=== PATIENT | male | born 1960 | race Caucasian/White ===

== ENCOUNTER 2025-05-29 11:04 | Inpatient (IN) ==
--- NOTE | 2025-05-02 09:32 | PAT Medication Instructions ---
Medication Instructions Date of Service May 02, 2025 Home Medications allopurinol 300 mg tablet 300 mg PO HS amlodipine 10 mg tablet 10 mg PO HS sertraline 50 mg tablet 50 mg PO QAM Take morning of surgery With a small sip of water, OTHERWISE NOTHING TO EAT OR DRINK AFTER MIDNIGHT: sertraline 50 mg tablet 50 mg PO QAM Take evening before surgery allopurinol 300 mg tablet 300 mg PO HS amlodipine 10 mg tablet 10 mg PO HS Other Notes If you have any questions please call us at [phone] or [phone] or [phone] or [phone]
--- NOTE | 2025-05-07 13:25 | Anesthesiology Consultation ---
Date of Service May 07, 2025 Assessment & Plan (1) Encounter for pre-operative examination: - Infectious disease screening: Per assessment on 05/02/25- No known recent infectious disease contacts or current infectious disease symptoms. - PCP visit 05/07/25: "Detsky's modified cardiac risk index puts him at a low risk cardiovascular events.. at this time we will clear patient for surgery as a low risk.." Chart Review Chart Review: Acceptable Risk for Surgery and Patient seen in Pre Admission Testing Teaching & Discussion Pre-Anesthesia Teaching/Discussion Notes: Instructed NPO after midnight before surgery,except medications with 15 cc of water. Medication instructions provided according to the PAT guidelines. History Surgery Operation Date: 05/29/25 10:25 Proposed Procedures p L2-L5 Decompression and Fusion - Rogelio Emanuel DO Height/Weight Height: 5 ft 9.5 in Weight: 82.2 kg Allergies Allergy/AdvReac Type Severity Reaction Status Date / Time No Known Allergies Allergy Verified 05/02/25 07:37 Medications Home Medications Medication Instructions Recorded Confirmed Last Taken allopurinol 300 mg tablet 300 mg PO HS 05/02/25 05/02/25 Unknown amlodipine 10 mg tablet 10 mg PO HS 05/02/25 05/02/25 Unknown sertraline 50 mg tablet 50 mg PO QAM 05/02/25 05/02/25 Unknown Past Medical History Medical History (Updated 05/08/25 @ 10:40 by Savanah Jose) Anxiety Aortic root dilation Stable x 20 years per patient, monitored by PCP Stable 4.3 cm ascending aorta per 05/2024 CT Thorax HTN (hypertension) Hx of gout Exercise / Class Metabolic Activity II 4-5 Yardwork/Stairs/Walk up hill (one FS: No CP, no SOB) Past Family History Family History Other No family history of adverse response to anesthesia Past Surgical History Surgical History Hx of colonoscopy Hx of inguinal hernia repair Hx of melanoma excision removed from face Past Anesthesia History No Hx of Anesthesia Complications and No Family Hx of Anesthesia Complications History of PONV No Hx of PONV and No Hx of Motion Sickness Social History Smoking Status: Never smoker Do You Dip or Chew Tobacco: No Hx Alcohol Use: Yes alcohol intake frequency: holidays/special occasions only Hx Substance Use: No substance use type: does not use Review of Systems Patient denies chest pain, shortness of breath, dyspnea on exertion, fever, chills, cough, wheezing, palpitations. Physical Exam Vital Signs BP 151/84 P 75 TEMP 98.4 SP02 95%RA RESP 16 Physical Full cervical extension range of motion. Full TMJ range of motion. TMD 3 finger breaths Mallampati Score II Dentition: intact, upper left front chipped Lungs: clear throughout to auscultation Cardiac: regular rate and rhythm, no murmurs noted Spine: normal Carotid arteries: negative bruit Extremities: no LE edema Lab Results Anesthesia Preop Results Results Anesthesia Widget: WBC 6.27 K/ul (4.8-10.8) 05/07/25 Hgb 13.8 g/dl (14.0-18.0) L 05/07/25 Hct 38.6 % (42.0-52.0) L 05/07/25 Plt 194 K/uL (130-400) 05/07/25 Na 135 mmol/L (136-145) L 05/07/25 K 3.6 mmol/L (3.5-5.1) 05/07/25 Cl 103 mmol/L (98-107) 05/07/25 CO2 25 mmol/L (21-32) 05/07/25 BUN 17 mg/dl (6-23) 05/07/25 Creat 1.46 mg/dl (0.6-1.4) H 05/07/25 Glucose Level 101 mg/dl (70-99(Fasting)) H 05/07/25 PT 10.9 Seconds (9.0-12.0) 05/07/25 PTT 27 Seconds (21-31) 05/07/25 INR 1.0 (0.9-1.1) 05/07/25 Urine Color Yellow 05/07/25 Urine Appearance Clear (Clear) 05/07/25 Urine pH 6.0 (4.5-7.5) 05/07/25 Urine Specific Ephraim 1.009 (1.000-1.030) 05/07/25 Urine Protein Negative (Negative) 05/07/25 Urine Glucose (UA) Negative (Negative) 05/07/25 Urine Ketones Negative (Negative) 05/07/25 Urine Blood Negative (Negative) 05/07/25 Urine Nitrite Negative (Negative) 05/07/25 Urine Bilirubin Negative (Negative) 05/07/25 Urine Urobilinogen Negative (Negative) 05/07/25 Urine Leukocyte Esterase Negative (Negative) 05/07/25 Blood Type A Positive 05/07/25 Antibody Screen NEGATIVE 05/07/25 Testing Electrocardiogram Date: 05/07/25 NSR at 68bpm. LAFB. Chest X-Ray Date: 05/07/25 FINDINGS: Heart size and pulmonary vasculature are normal. No consolidation or pleural effusion. There is mild scoliosis. IMPRESSION: No acute findings. Other Testing CT Thorax Date: 05/11/24 Stable 4.3 cm ascending aorta.
[~2025-05-29 11:04] MED LIST: DEXAMETHASONE SOD INJ 4 MG/ML VIAL ONE; HYDROmorphone INJ 2 MG/ML SYR/VIAL ONE; LIDOCAINE 2% 2 ML VIAL/AMP(20MG/ML) INFIL ONE; MIDAZOLAM HCL 1 MG/ML 2ML VIAL ONE; ONDANSETRON INJ 2 MG/ML 2 ML VIAL ONE; PROPOFOL IV EMULSION 10 MG/ML 20 ML VIAL IV ONE; ROCURONIUM BROMIDE 10 MG/ML 5 ML VIAL IV ONE
[2025-05-29] MEDS ORDERED: ONDANSETRON INJ 2 MG/ML 2 ML VIAL IV PRN (11:12)
[2025-05-29] MEDS ORDERED: ATROPINE SULFATE 0.1 MG/ML 10ML SYR IV PRN (11:12)
[2025-05-29] MEDS ORDERED: HYDROmorphone INJ 1 MG/ML SYRINGE IV PRN (11:12)
[2025-05-29] MEDS: CeleBREX 200 MG CAP PO SCH (11:24)
[2025-05-29] MEDS: LR 60ML/HR IV SCH (11:24)
[2025-05-29] MEDS: ACETAMINOPHEN 500 MG TAB PO SCH (11:24)
[2025-05-29] MEDS: GABAPENTIN 300 MG CAP PO SCH (11:24)
[2025-05-29] MEDS: LR 15ML/HR IV SCH (11:28)
--- NOTE | 2025-05-29 11:50 | History & Physical Report ---
Date of Service May 29, 2025 Assessment & Plan (1) Multilevel lumbosacral spondylosis with radiculopathy: Plan: L2-L5 decompression and fusion History of Present Illness Chief Complaint: Back and leg pain Primary Care Provider: NO PCP This is a 65-year-old male presents with chronic persistent back and leg pain after failing course of nonoperative care is here for surgical invention. Allergies Allergy/AdvReac Type Severity Reaction Status Date / Time No Known Allergies Allergy Verified 05/29/25 10:51 Home Medications Medication Instructions Recorded Confirmed Type allopurinol 300 mg tablet 300 mg PO HS 05/02/25 05/29/25 History amlodipine 10 mg tablet 10 mg PO HS 05/02/25 05/29/25 History sertraline 50 mg tablet 50 mg PO QAM 05/02/25 05/29/25 History acetaminophen 650 mg 1,300 mg PO Q12H PRN Pain 05/29/25 05/29/25 History tablet,extended release (Tylenol 8 Hour) Past Med/Surg History Problem List (Updated 05/29/25 @ 11:50 by Rogelio Emanuel DO) Multilevel lumbosacral spondylosis with radiculopathy Encounter for pre-operative examination Medical History (Updated 05/29/25 @ 11:50 by Rogelio Emanuel DO) Aortic root dilation Stable x 20 years per patient, monitored by PCP Stable 4.3 cm ascending aorta per 05/2024 CT Thorax Anxiety HTN (hypertension) Hx of gout Surgical History Hx of colonoscopy Hx of melanoma excision removed from face Hx of inguinal hernia repair Family History Other No family history of adverse response to anesthesia Social History Smoking Status: Never smoker Second Hand Exposure: No; Do You Dip or Chew Tobacco: No; Tobacco Cessation Education Requested by Patient: No Hx Alcohol Use: Yes Hx Substance Use: No Preferred Language: Estonian Communication Ability: Effective Cork Cutter Required: No Beliefs That Will Affect Care: None Current Living Situation: Spouse Other Information That Helps Us Care for You: No Feels Safe at Home: Yes Safety Concerns: Feels Safe At This Time Assistive Devices: None Physical Exam Physical Exam: Patient is alert and oriented heart regular rhythm Lungs clear Results & Data Results & Data Vital Signs (Past 12 Hours) Vital Signs Temp Pulse Resp BP Pulse Ox O2 Del Method 05/29/25 11:09 Room Air 05/29/25 11:08 36.7 C 67 18 177/97 H 100 Room Air
--- NOTE | 2025-05-29 11:50 | History & Physical Bridge Note ---
Date of Service May 29, 2025 History & Physical Bridge Note I have examined the patient, reviewed the History & Physical and in the interval since the performance of the History & Physical I have noted the following changes of clinical significance: no changes noted
[2025-05-29] MEDS ORDERED: ALBUMIN HUMAN 5% 12.5 GM/250 ML VIAL IV ONE (12:11)
[2025-05-29] MEDS ORDERED: KETAMINE HCL 10MG/ML SYR ONE (12:11)
[2025-05-29] MEDS ORDERED: ePHEDrine sulfate 50 MG/5 ML SYR ONE (12:55)
[2025-05-29] MEDS: ceFAZolin 330 MG/ML 1 GM VIAL ONE (12:59)
[2025-05-29] MEDS: BUPIVACAINE/EPINEPHRINE 0.25% 1:200,000 30 ML VIAL ONE (12:59)
[2025-05-29] MEDS: SURGICEL ABSORB HEMOSTAT 2IN X 14IN TOP ONE (13:13)
[2025-05-29] MEDS ORDERED: SUGAMMADEX SODIUM 200 MG/2 ML VIAL IV ONE (13:48)
[2025-05-29] MEDS: FLOSEAL HEMOSTATIC MATRIX 10ML TOP ONE (14:29)
--- NOTE | 2025-05-29 14:46 | Operative Report ---
Post Operative Report Pre & Post Diagnosis Operation Date: 05/29/25 12:15 Pre-Op Diagnosis: #1 lumbar spondylosis with radiculopathy #2 lumbar spondylolisthesis with radiculopathy #3 lumbar spinal stenosis Post-Op Diagnosis: Same I identified the patient and participated in the time-out.: Yes Procedure Operation Date: 05/29/25 12:15 Actual Procedures #1 lumbar decompression with bilateral medial facetectomies and foraminotomies L2-L3, L3-L4 and L4-5. #2 posterior spinal fusion L2-L5. #3 placed posterior segmental instrumentation L2-L5 using camber. #4 interbody fusion L3-L4 L4-5 and #5 placement of Spira 13 x 26 mm x 2 at L3-L4 and 12 x 26 mm x 2 at L4-L5. #6 placement locally harvested morselized autograft in the posterior gutters. #7 placement of Proteus bone graft combined with Koros in the posterior lateral gutters and os design in the interbody space. #8 application of versa wrap of the exposed dura. Surgeon Rogelio Emanuel, DO Hand Candy Dipper Aggie Celis Estimated Blood Loss 400 Findings Consistent with Post-Op Diagnosis Specimens None Indications This is a 65-year-old male who presents by much diagnosis and failing course of nonoperative care is here for surgical invention. Description of Procedure Patient is met with identified informed consent obtained. Patient was then taken to the operative suite underwent and patient placed in a prone position on the Michael table atop the Juwan frame. All bony promises well-padded eyes inspected to ensure no external pressure placed upon them. This point the lumbar spine was prepped and draped in normal sterile fashion. Sharp dissection with the assistance of Bovie cautery from down to and exposing the lamina and transverse processes of L2 L3-L4-L5 bilaterally. Benitez cephalad fashion complete laminectomy of L4 L3 and L2 was performed including bilateral medial facetectomies and foraminotomies addressing severe neural compression. Pedicle screws in place in L2 L3-L4-L5 bilaterally with assistance of fluoroscopy and appropriately sized zaina placed. By way of transfer and approach and a right a discectomy of L4-L5 was performed endplates corrected to subcortical bleeding bone and a 12 x 26 mm Spira cage tapped into position. I then proceeded to the left transforaminal region at L4-5. Again discectomy performed. Endplates guided to subcortical bleeding bone. A second 12 x 26 mm Spira cage tapped into position. Then proceeded to L3-L4 and by way of transforaminal approach on the left a discectomy was performed. Endplates curetted to subcortical bleeding bone. A 13 x 26 mm Spira cage was then tapped into position. Then proceeded to the right transforaminal region at L3-L4. Again discectomy performed. Endplates coated to subcortical bleeding bone and a second 13 x 26 mm Spira cage tapped into position. Please note all cages were packed with os design bone graft. Rods were then locked into final position bilaterally. The transverse processes of L2-L3 L4-5 burred to subcortical bleeding bone. Koros combined with Proteus and local autograft placed in the posterolateral gutters. Versa wrap placed over the exposed dura. 15 round RAHEEM drain inserted. The incision was then closed with 1 Vicryl the fascia 2-0 Vicryl subcutaneously and 4 oh for final skin closure. Steri-Strips sterile dressing placed. Patient waken taken to PACU stable condition. Please note Aggie Celis was present out the entire procedure and on the patient positioning complex portion of the surgery and final skin closure. I attest to the content of the Intraoperative Record and any orders documented therein. Any exceptions are noted below.
--- NOTE | 2025-05-29 15:23 | Fluoroscopy Report ---
FL lumbar spine 2-3V CLINICAL HISTORY: L2-L5 DECOMPRESSION AND FUSION COMPARISON STUDY: No previous studies for comparison. FINDINGS: 14 seconds of fluoroscopic time was utilized. 2 intraoperative fluoroscopic spot images are provided for interpretation. There are postsurgical changes of an L2-L5 spinal decompression and fusion. Interbody fusion implants are visualized at the L3-4 and L4-5 levels. There are pedicle screws and adjoining spinal rods exten ding from the L2 to the L5 level. IMPRESSION: Fluoroscopic spot images demonstrating an L2-L5 spinal decompression and fusion. ACT 112: Negative or not required by law. Electronically signed by: Eber Diaz M.D. 05/29/2025 3:22 PM
--- NOTE | 2025-05-29 15:39 | Anesthesiology Progress Note ---
Date of Service May 29, 2025 Anesthesia Post Procedure Vital Signs Vital Signs: Temp Pulse Pulse Resp BP Pulse Ox O2 Del Method 05/29/25 15:35 36.5 C 68 15 117/74 100 Nasal Cannula 05/29/25 15:25 67 14 95/64 L 88 L Room Air 05/29/25 15:15 77 13 121/76 97 Room Air 05/29/25 15:05 71 10 L 122/70 99 Oxymask 05/29/25 14:59 36.5 C 82 11 L 126/80 97 Oxymask 05/29/25 11:09 Room Air 05/29/25 11:08 36.7 C 67 18 177/97 H 100 Room Air O2 Flow Rate 05/29/25 15:35 2 05/29/25 15:25 05/29/25 15:15 05/29/25 15:05 4 05/29/25 14:59 6 05/29/25 11:09 05/29/25 11:08 Pain Intensity Back: Pain Intensity: 5 Transfer of Care Handoff Completed per policy Notes Mental Status: alert / awake / arousable Patient Amnestic to Procedure: Yes Nausea / Vomiting: adequately controlled Pain: adequately controlled Airway Patency, RR, SpO2: stable & adequate BP & HR: stable & adequate Hydration State: stable & adequate Anesthetic Complications: no major complications apparent and Pt Satisfied with anesthetic care
[2025-05-29] MEDS ORDERED: PROMETHAZINE 12.5 MG/50.5 ML BAG IV PRN (16:02)
[2025-05-29] MEDS ORDERED: HYDROmorphone INJ 0.5 MG/0.5 ML SYR IV PRN (16:02)
[2025-05-29] MEDS ORDERED: FAMOTIDINE 20 MG TAB PO PRN (16:02)
[2025-05-29] MEDS ORDERED: LORazepam Inj 0.5 MG in SYRINGE 0.25 ML IV PRN (16:02)
[2025-05-29] MEDS ORDERED: METOCLOPRAMIDE HCL INJ 5 MG/ML 2 ML VIAL IV PRN (16:02)
[2025-05-29] MEDS ORDERED: MAGNESIUM HYDROXIDE SUSP 30 ML UDC PO PRN (16:02)
[2025-05-29] MEDS ORDERED: DO NOT ADMINISTER FLU VACCINE PRN (16:02)
[2025-05-29] MEDS ORDERED: ONDANSETRON 4 MG OD TAB PO PRN (16:02)
[2025-05-29] MEDS ORDERED: NALOXONE HCL 0.4 MG/1 ML VIAL/CARP IV PRN (16:02)
[2025-05-29] MEDS ORDERED: ALUMINUM/MAGNESIUM SUSP 30 ML UDC PO PRN (16:02)
[2025-05-29] MEDS ORDERED: SOD PHOSPHATE/SOD BIPHOSPHATE ENEMA 132 ML BTL PR PRN (16:02)
[2025-05-29] MEDS ORDERED: DO NOT ADMINISTER PNEUMOCOCCAL VACCINE PRN (16:02)
[2025-05-29] MEDS: HYDROmorphone INJ 1 MG/ML SYRINGE IV PRN (16:17)
[2025-05-29] MEDS: SODIUM CHLORIDE 0.9% 1,000 ML IV SCH (16:17)
--- NOTE | 2025-05-29 19:58 | Hospitalist Consultation ---
Date of Consultation May 29, 2025 Assessment & Plan (1) Multilevel lumbosacral spondylosis with radiculopathy: S/p lumbar surgery by Dr. Emanuel DVT ppx, pain management, PT/OT per orthopedics Monitor H&H for acute blood loss anemia, pre-op Hgb 13.8 Currently pt is doing well. Denies any significant pain. Moving extremities. Hx of HTN - on amlodipine 10 mg daily - current BP 118/75, will hold amlodipine for tonight, re-assess tmrw and possibly resume then Hx of gout - on allopurinol, cont. Hx of depression - on sertraline 75 mf daily, cont. History of Present Illness Reason for Consultation: post op med consult Requesting Physician: Dr. Emanuel Attending Physician: Rogelio Emanuel, History of Present Illness 65 yo M w/ hx of back pain due to lumbar spondylosis, HTN, gout, depression, now s/p lumbar surgery w/ Dr. Emanuel. Currently lying in bed in [facility]. He is awake, resting, alert, oriented, answers simple questions appropriately. Denies any chest pain and denies any hx of heart disease. Nonsmoker. Denies any shortness of breath, or abd. pain, or n/v. no fevers, chills. Confirms taking sertraline 75 mg - dose changed in EMR. Allergies Allergy/AdvReac Type Severity Reaction Status Date / Time No Known Allergies Allergy Verified 05/29/25 10:51 Home Medications Medication Instructions Recorded Confirmed Type allopurinol 300 mg tablet 300 mg PO HS 05/02/25 05/29/25 History amlodipine 10 mg tablet 10 mg PO HS 05/02/25 05/29/25 History sertraline 50 mg tablet 50 mg PO QAM 05/02/25 05/29/25 History acetaminophen 650 mg 1,300 mg PO Q12H PRN Pain 05/29/25 05/29/25 History tablet,extended release (Tylenol 8 Hour) Patient History Medical History Aortic root dilation Stable x 20 years per patient, monitored by PCP Stable 4.3 cm ascending aorta per 05/2024 CT Thorax Anxiety HTN (hypertension) Hx of gout Surgical History Hx of colonoscopy Hx of melanoma excision removed from face Hx of inguinal hernia repair Family History Other No family history of adverse response to anesthesia Social History Smoking Status: Never smoker Second Hand Exposure: No; Do You Dip or Chew Tobacco: No; Tobacco Cessation Education Requested by Patient: No Hx Alcohol Use: Yes Hx Substance Use: No Preferred Language: Emirati Communication Ability: Effective Supervisor Hand Silvering Required: No Beliefs That Will Affect Care: None Current Living Situation: Spouse Other Information That Helps Us Care for You: No Feels Safe at Home: Yes Safety Concerns: Feels Safe At This Time Assistive Devices: None Review of Systems Review of Systems: All systems reviewed & are unremarkable except as noted in HPI & below Physical Exam Constitutional: WD/WN, vitals as above Eyes: PERRL, conjunctivae normal, anicteric sclerae ENMT: external ear and nose normal, oropharynx normal Neck: trachea midline, no thyromegaly Respiratory: normal respiratory effort, lungs clear to auscultation Cardiovascular: RRR, no murmur, no edema Chest (Breasts): Chest: normal inspection of chest Gastrointestinal (Abdomen): normal bowel sounds, soft, nontender Musculoskeletal: moves extremities Skin: no rashes, warm and dry Neurologic: awake, alert, answers appropriately, moves extremities Genitourinary: Kumar cath placed, draining yellow clear urine Results & Data Results & Data Vital Signs (Past 12 Hours) Vital Signs Temp Pulse Pulse Resp BP Pulse Ox O2 Del Method 05/29/25 19:22 36.3 C L 90 16 118/75 92 Room Air 05/29/25 18:00 36.3 C L 98 H 18 133/84 99 Nasal Cannula 05/29/25 17:11 36.2 C L 89 17 130/89 100 Nasal Cannula 05/29/25 16:35 36.4 C L 74 18 146/91 H 98 Nasal Cannula 05/29/25 16:00 Nasal Cannula 05/29/25 15:50 76 17 115/75 100 Nasal Cannula 05/29/25 15:35 36.5 C 68 15 117/74 100 Nasal Cannula 05/29/25 15:25 67 14 95/64 L 88 L Room Air 05/29/25 15:15 77 13 121/76 97 Room Air 05/29/25 15:05 71 10 L 122/70 99 Oxymask 05/29/25 14:59 36.5 C 82 11 L 126/80 97 Oxymask 05/29/25 11:09 Room Air 05/29/25 11:08 36.7 C 67 18 177/97 H 100 Room Air O2 Flow Rate 05/29/25 19:22 05/29/25 18:00 1 05/29/25 17:11 05/29/25 16:35 2 05/29/25 16:00 2 05/29/25 15:50 2 05/29/25 15:35 2 05/29/25 15:25 05/29/25 15:15 05/29/25 15:05 4 05/29/25 14:59 6 05/29/25 11:09 05/29/25 11:08 Laboratory Results 05/29/25 Range/Units 10:50 Blood Type A Positive Antibody Screen NEGATIVE Crossmatch See Detail Medications Administered Current Inpatient Medications Acetaminophen (Acetaminophen 500 Mg Tab) 1,000 mg PO Q8H PRN PRN Reason: MILD Pain (1,2,3) & Pre PT Stop: 06/28/25 16:01 Al Hydrox/Mg Hydrox/Simethicone (Aluminum/Magnesium Susp 30 Ml Udc) 30 ml PO Q6H PRN PRN Reason: Dyspepsia Stop: 06/28/25 16:01 Allopurinol (Allopurinol 300 Mg Tab) 300 mg PO HS ASA Stop: 06/28/25 20:59 Amlodipine Besylate (Amlodipine Besylate 5 Mg Tab) 10 mg PO HS ASA Stop: 06/28/25 20:59 Bisacodyl (Bisacodyl 10 Mg Supp) [address] DAILY PRN PRN Reason: Constipation Stop: 06/28/25 16:01 Diphenhydramine HCl (Diphenhydramine Capsule 25 Mg Cap) 25 mg PO Q6H PRN PRN Reason: Allergic Rhinitis/Insomnia Stop: 06/28/25 16:01 Famotidine (Famotidine 20 Mg Tab) 20 mg PO Q12H PRN PRN Reason: Dyspepsia Stop: 06/28/25 16:01 Hydromorphone HCl (Hydromorphone Inj 0.5 Mg/0.5 Ml Syr) 0.5 mg IV Q3H PRN PRN Reason: MODERATE Pain(4,5,6)/Pre PT Stop: 06/12/25 16:01 Hydromorphone HCl (Hydromorphone Inj 1 Mg/Ml Syringe) 1 mg IV Q3H PRN PRN Reason: SEVERE Pain (7,8,9,10) Stop: 06/12/25 16:01 Last Admin: 05/29/25 16:17 Dose: 1 mg Hydroxyzine HCl (Hydroxyzine Hcl 25 Mg Tab) 25 mg PO Q8H PRN PRN Reason: Anxiety Stop: 06/28/25 16:01 Lactated Ringer's (Lr) 1,000 mls @ 60 mls/hr IV .[id number] ASA Stop: 05/29/25 22:39 Last Admin: 05/29/25 11:24 Dose: Not Given Lactated Ringer's (Lr) 1,000 mls @ 15 mls/hr IV .Q24H ASA Stop: 05/30/25 05:59 Last Infusion: 05/29/25 12:21 Dose: Infused Sodium Chloride (Nss) 1,000 mls @ 100 mls/hr IV .Q10H ASA Stop: 06/01/25 16:01 Last Admin: 05/29/25 16:17 Dose: 100 mls/hr Acetaminophen (Ofirmev) 1,000 mg in 100 mls @ 400 mls/hr IV Q8H PRN PRN Reason: MILD Pain (1,2,3) & Pre PT Stop: 05/30/25 16:02 Cefazolin Sodium (Ancef 2000mg) 2,000 mg in 15 mls @ 3.75 mls/min IV Q8H ASA Stop: 06/01/25 13:03 Promethazine HCl (Phenergan) 12.5 mg in 50.5 mls @ 202 mls/hr IV Q6H PRN PRN Reason: Nausea And Vomiting Stop: 06/28/25 16:01 Lorazepam 0.5 mg/ Syringe 0.5 mls @ 2 mls/min IV Q8H PRN PRN Reason: Sedation/Anxiety Stop: 06/28/25 16:01 Dexamethasone 6 mg/ Syringe 1.5 mls @ 1 mls/min IV DAILY ASA Stop: 06/01/25 09:02 Influenza Virus Vaccine Quadrival (Do Not Administer Flu Vaccine) 1 each N/A PRN PRN PRN Reason: Notification Stop: 06/28/25 16:01 Lorazepam (Lorazepam 0.5 Mg Tab) 0.5 mg PO Q8H PRN PRN Reason: Sedation/Anxiety Stop: 06/28/25 16:01 Magnesium Hydroxide (Magnesium Hydroxide Susp 30 Ml Udc) 30 ml PO Q24H PRN PRN Reason: Constipation Stop: 06/28/25 16:01 Metoclopramide HCl (Metoclopramide Hcl Inj 5 Mg/Ml 2 Ml Vial) 10 mg IV Q6H PRN PRN Reason: Nausea &/or Vomiting Stop: 06/28/25 16:01 Naloxone HCl (Naloxone Hcl 0.4 Mg/1 Ml Vial/Carp) 0.1 mg IV Q5M PRN PRN Reason: Oversedation/Resp depression Stop: 06/28/25 16:01 Ondansetron HCl (Ondansetron Inj 2 Mg/Ml 2 Ml Vial) 4 mg IV Q6H PRN PRN Reason: Nausea &/or Vomiting Stop: 06/28/25 16:01 Ondansetron HCl (Ondansetron 4 Mg Od Tab) 4 mg PO Q6H PRN PRN Reason: Nausea Stop: 06/28/25 16:01 Oxycodone HCl (Oxycodone Hcl Ir 5 Mg Tab (Immediate Release)) 5 - 10 mg PO Q4H PRN PRN Reason: MOD/SEV Pain & Pre PT Stop: 06/12/25 16:01 Pneumococcal Polyvalent Vaccine (Do Not Administer Pneumococcal Vaccine) 1 each N/A PRN PRN PRN Reason: Notification Stop: 06/28/25 16:01 Polyethylene Glycol (Polyethylene (Miralax) 17 Gm Pack) 17 gm PO Q6 ASA Stop: 06/29/25 05:59 Senna/Docusate Sodium (Docusate Sodium/Senna 50/8.6mg Tab) 2 tab PO HS ASA Stop: 06/28/25 20:59 Sertraline HCl (Sertraline Hcl 50 Mg Tablet) 75 mg PO QAM ASA Stop: 06/29/25 08:59 Sodium Biphosphate/Sodium Phosphate (Sod Phosphate/Sod Biphosphate Enema 132 Ml Btl) [address] ONE PRN PRN Reason: Constipation Stop: 06/28/25 16:01 Tramadol HCl (Tramadol Hcl 50 Mg Tablet) 50 - 100 mg PO Q4H PRN PRN Reason: MOD/SEV Pain & Pre PT Stop: 06/28/25 16:01 Last Admin: 05/29/25 17:59 Dose: 100 mg
[2025-05-29] MEDS: DOCUSATE SODIUM/SENNA 50/8.6MG TAB PO SCH (21:28)
[2025-05-30] MEDS: ACETAMINOPHEN 500 MG TAB PO PRN (01:43)
[2025-05-30] MEDS: POLYETHYLENE (MIRALAX) 17 GM PACK PO SCH (05:55)
[2025-05-30 06:24] LABS: Hematocrit (blood only) 29.1 % (42.0-52.0); Hemoglobin 10.5 g/dl (14.0-18.0); Immature Granulocytes # (auto) 0.04 K/uL (0.01-0.20); Immature Granulocytes % (auto) 0.3 %; Mean Corpuscular Hemoglobin 31.8 pg (25.0-34.0); Mean Corpuscular Volume 88.2 fL (80.0-100.0); Platelet Count 172 K/uL (130-400); RDW Standard Deviation 38.5 fL (36.4-46.3); Red Blood Count 3.30 M/uL (4.70-6.10); White Blood Count 12.42 K/ul (4.8-10.8)
[2025-05-30 06:43] LABS: Anion Gap 7.0 (3-11); Blood Urea Nitrogen 12.0 mg/dl (6-23); Calcium 8.1 mg/dl (8.6-10.3); Carbon Dioxide 24.0 mmol/L (21-32); Chloride 102.0 mmol/L (98-107); Creatinine Clr Calc Pharmacy 71.5 ml/min; Glucose 124.0 mg/dl (70-99(Fasting)); Potassium 3.8 mmol/L (3.5-5.1); Sodium 133.0 mmol/L (136-145)
[2025-05-30] MEDS: SERTRALINE HCL 50 MG TABLET PO SCH (08:22)
[2025-05-30] MEDS: dexAMETHasone 6 MG in SYRINGE 0 ML IV SCH (08:27)
[2025-05-30] MEDS ORDERED: SERTRALINE HCL 50 MG TABLET PO SCH (09:00)
--- NOTE | 2025-05-30 09:53 | Orthopedic Progress Note ---
Date of Service May 30, 2025 Assessment & Plan (1) Multilevel lumbosacral spondylosis with radiculopathy: Plan: Boyd is postoperative day 1 status post L2-5 decompression and fusion. He is can start physical therapy today. Continue with pain control. DVT prophylaxis is in the form teds and SCDs. Work on aggressive bowel regimen. Anticipate discharge home within the next day or 2. Admission and Anticipated Discharge Date Admission Date: May 29, 2025 Subjective Boyd is postoperative day 1 status post L2-L5 decompression and fusion. He has had an uneventful evening. Pain is greatly improved. RAHEEM drain output last shift was 120 cc. H&H this morning are 10.5 and 29.1 respectively. No other complaints. Review of Systems Review of Systems: All systems reviewed & are unremarkable except as noted in HPI & below Physical Exam Physical Exam: He is sitting in a chair alert and orient x [address] Emanuel as well Strength is intact bilateral lower extremities Drainage on bandage which they are going to reinforce RAHEEM drain is intact and functioning Results & Data Vital Signs (Past 12 Hours) Vital Signs Temp Pulse Resp BP Pulse Ox O2 Del Method 05/30/25 06:00 36.4 C L 95 H 18 131/81 95 Room Air 05/30/25 02:35 36.4 C L 77 12 129/76 94 Room Air 05/29/25 23:33 36.6 C 107 H 16 142/80 H 92 Room Air
[2025-05-30] MEDS: ONDANSETRON INJ 2 MG/ML 2 ML VIAL IV PRN (10:14)
[2025-05-30] MEDS: ACETAMINOPHEN 1,000 MG/100 ML VIAL IV PRN (10:17)
[2025-05-30] MEDS ORDERED: Nursing to Pharmacy Communication SCH (12:00)
--- NOTE | 2025-05-30 13:25 | Hospitalist Progress Note ---
Date of Service May 30, 2025 Assessment & Plan (1) Multilevel lumbosacral spondylosis with radiculopathy: (2) HTN (hypertension): (3) Anxiety: (4) Acute postoperative anemia due to expected blood loss: Plan Patient 65-year-old gentleman status post orthopedic spine surgery. Continue outpatient medications Continue pain control per attending Patient did have some expected blood loss, anticipate patient will continue to improve as he gets further away from his surgical intervention Leukocytosis due to steroids Encourage slow but steady increase in his activity. Admission and Anticipated Discharge Date Admission Date: May 29, 2025 Subjective Patient seen shortly after physical therapy. This was the first time he was up. A bit fatigued and a little bit nauseated and some flare of his pain. Getting some antiemetics and pain medications while I was in evaluating him. Physical Exam Physical Exam: Constitutional: Alert, mild distress due to pain HEENT: Mucous membranes moist. Lungs: Clear to auscultation, decreased, no wheezes rales or rhonchi CV: S1-S2, regular Abdomen: Soft, nontender, nondistended Extremities: No significant edema Neuro: No focal deficits Psych: Cooperative, normal mood Results & Data Results & Data Vital Signs (Past 12 Hours) Vital Signs Temp Pulse Resp BP Pulse Ox O2 Del Method 05/30/25 08:00 36.8 C 78 16 156/82 H 98 Room Air 05/30/25 06:00 36.4 C L 95 H 18 131/81 95 Room Air 05/30/25 02:35 36.4 C L 77 12 129/76 94 Room Air Diagnostic Findings Reviewed imaging, laboratory and diagnostic studies. Pertinent findings as below. WBCs 12.4 Hemoglobin 10.5, Decreased Electrolytes stable Creatinine 1.0
[2025-05-30] MEDS: diphenhydrAMINE Capsule 25 MG CAP PO PRN (20:37)
[2025-05-31 00:10] VITALS: TEMP 97.7
[2025-05-31] MEDS: LORazepam 0.5 MG TAB PO PRN (01:17)
[2025-05-31 07:21] LABS: Hematocrit (blood only) 29.9 % (42.0-52.0); Hemoglobin 10.0 g/dl (14.0-18.0)
[2025-05-31 07:24] VITALS: BP 132/83; PULSE 85; RESP 16; O2SAT 97
--- NOTE | 2025-05-31 09:37 | Discharge Summary ---
Date of Service May 31, 2025 Admission HPI Per Admitting Provider This is a 65-year-old male presents with chronic persistent back and leg pain after failing course of nonoperative care is here for surgical invention. Principal Diagnosis Multilevel lumbar spondylosis with radiculopathy Discharge Data Allergies Allergy/AdvReac Type Severity Reaction Status Date / Time No Known Allergies Allergy Verified 05/29/25 10:51 Consultations 05/29/25 16:02 Consult Hospitalist Routine Procedures Performed Operation Date: 05/29/25 12:15 Actual Procedures p L2-L5 Decompression and Fusion(Not Applicable) - Rogelio Emanuel DO Ordered Studies 05/29/25 12:15 FL lumbar spine 2-3V Routine Hospital Course (1) Multilevel lumbosacral spondylosis with radiculopathy: Patient in 1 multilevel lumbar decompression fusion tolerated this well was taken to orthopedic for postoperative. Postop he progressed appropriate. Marked improvement of his leg pain. Strength improving. RAHEEM drain decreasing. Pain well-controlled. Subsidy discharged home. Discharge orders and instructions found in the chart for further review. Total Time Total Time Spent Total Time Spent (In Minutes): 20 minutes Discharge Plan Discharge Items Patient Disposition: Home - Self-Care Reason For Visit: Lumbar Disc Disease with Radiculopathy, Lumbar Spo Discharge Diagnosis: Lumbar spondylosis with radiculopathy Activity: As commented below Non-emergency contact: Primary Care Provider Call non-emergency contact if: you have any medication questions Follow-up/Referrals: PCP,NO [Physician] - Diet: Regular Addtl Attending Provider Instructions: ACTIVITY RECOMMENDATIONS: SELF CARE INSTRUCTIONS AFTER THORACIC/LUMBAR FUSIONS 1. You may walk to your tolerance. It is good exercise for your legs and back. Expect some back and intermittent leg aches and pains. 2. You may perform "counter-top" level activities (make a sandwich, jarred with a project, etc.). 3. No bending or lifting of more than 10 pounds or back twisting of any nature (roll like a log when turning in bed). 4. You may ride in a car for 20-30 minutes at a time. No driving until after your first visit with your doctor. 5. Frequent changes of position and restricting sitting to 30 minutes at a time will help limit the amount of back spasms and stiffness you may experience. 6. You may discontinue the use of ambulatory aids (cane, crutches, etc.) once your strength and confidence allow. 7. You may local superintendent the shower and let water strike your incision when you arrive home at least once daily. Do not take a tub bath, sit in a hot tub or go into a swimming pool until after your first recheck in the office. 8. You may resume previous diet. SPECIAL CARE INSTRUCTIONS: VERY IMPORTANT TO READ AND REVIEW A. Your surgical incision has been closed with a cosmetic suture under the skin that will dissolve in about 6 weeks. In 14 days, you can use a pair of clean scissors and cut the suture that is left outside of the skin at the ends of your incision. 1. The small skin tapes can be removed 7 days after surgery if they have not fallen off by that point. 2. You may keep the wound open to air as much as possible to promote healing after post-op day number 5 unless told otherwise by your doctor. 3. If you think the wound looks like it is becoming infected (redness or worsening drainage) and/or you are experiencing fever, chill or worsening back pain and muscle spasms, contact the office so that we may evaluate you as soon as possible. B. Complications are uncommon, but please contact us if you have any signs or symptoms of: 1. wound infection (fever higher than 102.5 degrees F, redness, separation of wound, drainage, or increasing pain from the incision) 2. blood clots in legs (pain, swelling, redness and warmth in legs) 3. urinary tract infection (fever higher than 102.5 degrees F, burning upon urination or increased frequency of urination) 4. nerve problems (inability to walk on your toes or heels, numbness, loss of bowel or bladder control) 5. any other symptoms that concern you C. Please call the office at if you have any concerns or questions about your operation or recovery. D. No smoking! Smoking drastically decreases the chance of a solid fusion. E. Do not take any anti-inflammatory medications (Indocin, Advil, Motrin, Aspirin, Naprosyn, etc.) as these may inhibit the chance of a solid fusion. Tylenol is okay to take for pain. MANAGING PAIN AFTER SPINAL SURGERY 1. Narcotic medication is intended for short-term use and will be provided for surgical pain. Surgical pain usually lasts for a period of 4-6 weeks. Narcotic medication includes Percocet, Vicodin, Darvocet, Tylenol #3 or Lortab. 2. Longer-term pain is more appropriately treated with non-narcotic medication such as Tylenol ES. 3. Muscle spasm is not appropriately treated with narcotics. Muscle relaxers such as Soma, Flexeril or Skelaxin can be used along with Tylenol ES. 4. Remember that we all live with some "aches and pains". This is not unusual or uncommon after an injury or as we get older. a. Back pain is expected and may include muscle spasms for 4 to 6 weeks after surgery. The pain should gradually improve. If the pain worsens for no apparent reason, please contact the office. b. Intermittent leg pain may also be experienced and should not be concerned about unless it worsens for no apparent reason. If so, please contact the office. 5. We will provide appropriate medication within the normal guidelines of their prescribed use. We will also be very cautious and aware of potential abuse and extended duration of patients' medication needs. a. Pain medications are for your comfort and to assist with sleep and rest so that the tissue can heal. They are not provided in order to return to normal activity and should not be used through the day. To do so or worsening pain at night can result from ongoing tissue damage and development of tolerance to the prescribed medicine. 6. Please allow 2-3 days to process refills. Prescriptions will not be mailed but must be picked up at the office. FOLLOW UP VISIT: Keep your scheduled follow-up appointment. Any questions, please call the office at . Pending Studies at Discharge: No Stand-Alone Forms: My [facility], Smoking Cessation Medications and DC Order Prescriptions: New tramadol 50 mg tablet 50 mg PO Q6H PRN (Reason: pain, moderate) Qty: 30 0RF oxycodone 5 mg tablet 5 mg PO Q6H PRN (Reason: pain) Qty: 30 0RF Rx Instructions: Oxycodone for severe pain tramadol for moderate pain Continued amlodipine 10 mg Tablet 10 mg PO HS allopurinol 300 mg Tablet 300 mg PO HS sertraline 50 mg Tablet 50 mg PO QAM acetaminophen [Tylenol 8 Hour] 650 mg Tablet Extended Release 1,300 mg PO Q12H PRN (Reason: Pain) Discharge Orders: Discharge Order (Routine); Ordered 05/31/25 Ordered By: Rogelio Emanuel Admission Data Admit Date/Time: 05/29/25 14:49 Attending Provider: Rogelio Emanuel Admit Provider: Rogelio Emanuel Primary Care Provider: Bernard Vasquez Other Providers: Camila Diaz
--- NOTE | 2025-05-31 13:34 | Hospitalist Progress Note ---
Date of Service May 31, 2025 Assessment & Plan (1) Multilevel lumbosacral spondylosis with radiculopathy: (2) HTN (hypertension): (3) Anxiety: (4) Acute postoperative anemia due to expected blood loss: Plan Patient doing well postoperatively Continue outpatient medications as prior to admission at the time of discharge. Medically ready for discharge when discharged per his surgical attending Admission and Anticipated Discharge Date Admission Date: May 29, 2025 Subjective Patient significantly improved when compared to yesterday. Sitting in a chair. Ambulating and tolerating his diet. Physical Exam Physical Exam: Constitutional: Alert HEENT: Mucous membranes moist. Lungs: Clear to auscultation, decreased, no wheezes rales or rhonchi CV: S1-S2, regular Abdomen: Soft, nontender, nondistended Extremities: No significant edema Musculoskeletal: Dressing clean and dry on back RAHEEM drain still in place, serosanguineous fluid Neuro: No focal deficits Psych: Cooperative, normal mood Results & Data Results & Data Vital Signs (Past 12 Hours) Vital Signs Temp Pulse Resp BP Pulse Ox O2 Del Method 05/31/25 07:23 36.5 C 85 16 132/83 97 Room Air Diagnostic Findings Hemoglobin 10.0, overall stable
== END 2025-05-31 13:27 | disposition home or self-care (01) | DRG 427 ==
LOC: ASU 11:04 → 3E 14:49